=== PATIENT | female | born 1940 ===

== ENCOUNTER 2017-10-28 17:35 | Emergency (ER) | payer MEDICARE, MEDICAID ==
[2017-10-28 17:48] VITALS: TEMP 98.1
--- NOTE | 2017-10-28 18:09 | ED PDOC ---
HPI: General Adult Time Seen by Provider: 10/28/17 17:54 Chief Complaint (Nursing): Medical Clearance Chief Complaint (Provider): Medical clearance for incarceration History Per: Patient History/Exam Limitations: no limitations Onset/Duration Of Symptoms: Days (today) Additional Complaint(s): Pt. found shoplifting so was arrested. She said she had high blood pressure history so police brought pt. in for psychiatric and medical clearance. Pt. denies chest pain, dyspnea, weakness, headaches, numbness, tingles, vision changes, abd pain, dysuria. Urinating well. No back pain. Has no symptoms. Not suicidal or homicidal. Took her med today for bp but does not know what it is. Past Medical History Reviewed: Nursing Documentation, Vital Signs Vital Signs: Last Vital Signs Temp 98.1 F 10/28/17 17:44 Pulse 74 10/28/17 19:54 Resp 17 10/28/17 19:54 BP 141/82 10/28/17 19:54 Pulse Ox 98 10/28/17 19:54 - Medical History PMH: HTN Denies: Chronic Kidney Disease - Surgical History Surgical History: No Surg Hx - Family History Family History: States: Unknown Family Hx - Home Medications Home Medications: Ambulatory Orders Medication Instructions Recorded Aspirin [Ecotrin] 81 mg PO DAILY 08/16/17 FLUoxetine [Fluoxetine HCl] 20 mg PO DAILY 08/16/17 Losartan [Cozaar] 1 tab PO DAILY 08/16/17 Omeprazole 20 mg PO DAILY 08/16/17 - Allergies Allergies/Adverse Reactions: Allergies Allergy/AdvReac Type Severity Reaction Status Date / Time No Known Allergies Allergy Verified 10/28/17 17:44 Review of Systems ROS Statement: Except As Marked, All Systems Reviewed And Found Negative Physical Exam - Reviewed Nursing Documentation Reviewed: Yes Vital Signs Reviewed: Yes - Physical Exam Appears: Positive for: Well, Non-toxic, No Acute Distress Head Exam: Positive for: ATRAUMATIC, NORMAL INSPECTION, NORMOCEPHALIC Skin: Positive for: Normal Color, Warm, DRY Eye Exam: Positive for: EOMI, Normal appearance, PERRL ENT: Positive for: Normal ENT Inspection Neck: Positive for: Normal, Painless ROM Cardiovascular/Chest: Positive for: Regular Rate, Rhythm Respiratory: Positive for: CNT, Normal Breath Sounds Gastrointestinal/Abdominal: Positive for: Normal Exam, Soft. Negative for: Tenderness Back: Positive for: Normal Inspection. Negative for: L CVA Tenderness, R CVA Tenderness Extremity: Positive for: Normal ROM. Negative for: Tenderness, Pedal Edema Neurologic/Psych: Positive for: Alert, supervisor of guidance and testing II-XII, Oriented. Negative for: Motor/Sensory Deficits - ECG O2 Sat by Pulse Oximetry: 96 - Progress ED Course And Treament: 2001: Pt. BP improved. With no symptoms. Crisis saw pt. and does not meet criteria for admit. AAOx3. Ambulated with no issues. Disposition - Clinical Impression Clinical Impression: HTN (hypertension) - Patient ED Disposition Is Patient to be Admitted: No Counseled Patient/Family Regarding: Diagnosis, Need For Followup - Disposition Referrals: [facility] [Outside] Disposition: Discharged/Transfer to Law Enforcement Disposition Time: 20:09 Condition: STABLE Additional Instructions: You are medically and psychiatrically cleared for incarceration. Instructions: High Blood Pressure in Adults Print Language: KINY[place]AN[place]
[2017-10-28 19:56] VITALS: BP 141/82; PULSE 74; RESP 17
[2017-10-28 20:10] VITALS: O2SAT 96
== END 2017-10-28 20:25 | disposition home or self-care (01) ==
LOC: H.ER 17:35
DX: I10 Essential (primary) hypertension (principal)